=== PATIENT | female | born 1950 | race Caucasian/White ===

== ENCOUNTER → 2017-08-21 | Outpatient (CLI) | payer OTHER ==
[~2017-08-21] MED LIST: BENA40TA2 PO; CALC625T13 PO; ESTR1TAB15 PO; FLUO10CA13 PO; LEVO50TA5 PO; PROG100C16 PO
[2017-08-21 14:15] LABS: MICROSCOPIC AUTO
[2017-08-21 14:16] LABS: BASOPHILS # (AUTO) 0.02 x10^3/uL (0-0.1); BASOPHILS % (AUTO) 0 % (0-1); EOSINOPHILS # (AUTO) 0.07 x10^3/uL (0-0.4); EOSINOPHILS % (AUTO) 1 % (1-7); LYMPHOCYTES # (AUTO) 1.27 x10^3/uL (1-3.4); LYMPHOCYTES % (AUTO) 18 % (22-44); MD NO; MEAN CORPUSCULAR HEMOGLOBIN 29.4 pg (27.0-34.8); MEAN CORPUSCULAR HGB CONC 32.8 g/dL (32.4-35.8); MEAN CORPUSCULAR VOLUME 89.7 fL (80-100); MEAN PLATELET VOLUME 7.7 fL (7.4-10.4); MONOCYTES # (AUTO) 0.28 x10^3/uL (0.2-0.8); MONOCYTES % (AUTO) 4 % (2-9); NEUTROPHILS # (AUTO) 5.41 x10^3/uL (1.8-6.8); NEUTROPHILS % (AUTO) 77 % (42-75); PLATELET COUNT 303 x10^3/uL (130-400); RED BLOOD COUNT 4.47 x10^6/uL (3.82-5.3); RED CELL DISTRIBUTION WIDTH 13.7 % (9.6-15.2)
[2017-08-21 14:20] LABS: CULTURE INDICATED? NO
[2017-08-21 14:21] LABS: ALBUMIN 3.7 g/dL (3.4-5.0); ANION GAP 8 mmol/L (5-15); CALCIUM 8.9 mg/dL (8.5-10.1); CHLORIDE 107 mmol/L (98-107)
[2017-08-21 14:24] LABS: ALANINE AMINOTRANSFERASE 23 U/L (12-78); ALKALINE PHOSPHATASE 74 U/L (45-117); BILIRUBIN,TOTAL 0.5 mg/dL (0.2-1.0); CREATININE 1.08 mg/dL (0.55-1.02); TOTAL PROTEIN 7.5 g/dL (6.4-8.2)
== END ==
LOC: STAR 13:14
PROVIDERS: ATTEND Obstetrics & Gynecology Gynecology
DX: Z01.818 Encounter for other preprocedural examination (principal); D25.9 Leiomyoma of uterus, unspecified
CPT/HCPCS: 36415; 80053; 81001; 85025; 93005

== ENCOUNTER 2017-08-25 05:54 | Day surgery (SDC) | payer OTHER ==
[2017-08-21 13:37] VITALS: BP 121/91
[~2017-08-25] VITALS: Ht 152.4 cm; Wt 48.5 kg
[2017-08-25] MEDS ORDERED: LACTATED RINGERS 1,000 ML IV SCH (07:00)
[2017-08-25] MEDS ORDERED: FUROSEMIDE 20 MG/2 ML ONE (07:28)
[2017-08-25] MEDS ORDERED: INDIGO CARMINE 0.8%, 5ML ONE (07:28)
[2017-08-25] MEDS ORDERED: EPINEPHRINE 1 MG/ML, 1ML ONE (07:28)
[2017-08-25] MEDS ORDERED: LIDOCAINE 1%, 50ML ONE (07:28)
[2017-08-25] MEDS ORDERED: SCOPOLAMINE PATCH, 1.5MG PATCH.TD72 TD ONE ×2 (07:41→08:00)
[2017-08-25] MEDS ORDERED: ACETAMINOPHEN 500 MG TABLET ONE (07:41)
[2017-08-25] MEDS ORDERED: FAMOTIDINE 20 MG TABLET ONE (07:41)
[2017-08-25] MEDS ORDERED: OXYcodone IR 5MG TABLET ONE (07:41)
[2017-08-25] MEDS ORDERED: GABAPENTIN 300 MG CAPSULE ONE (07:42)
[2017-08-25] MEDS ORDERED: MIDAZOLAM 1 MG/ML, 2ML ONE (07:45)
[2017-08-25] MEDS ORDERED: FENTANYL PF 100 MCG/2ML ONE ×2 (07:45→09:20)
[2017-08-25] MEDS ORDERED: CEFAZOLIN 1,000 MG ONE (07:50)
[2017-08-25] MEDS ORDERED: PROPOFOL 10 MG/ML, 20ML ONE (07:50)
[2017-08-25] MEDS ORDERED: KETOROLAC 30 MG/1 ML ONE (07:50)
[2017-08-25] MEDS ORDERED: ROCURONIUM 10 MG/ML,10ML ONE (07:50)
[2017-08-25] MEDS ORDERED: SUCCINYLCHOLINE 20 MG/ML, 10ML ONE (07:50)
[2017-08-25] MEDS ORDERED: DEXAMETHASONE 4 MG/ML, 5ML ONE (07:50)
[2017-08-25] MEDS ORDERED: ONDANSETRON 2MG/ML, 2ML ONE (07:50)
[2017-08-25] MEDS ORDERED: OXYcodone IR 5MG TABLET PO ONE (08:00)
[2017-08-25] MEDS ORDERED: ACETAMINOPHEN 500 MG TABLET PO ONE (08:00)
[2017-08-25] MEDS ORDERED: GABAPENTIN 300 MG CAPSULE PO ONE (08:00)
[2017-08-25] MEDS ORDERED: FAMOTIDINE 20 MG TABLET PO ONE (08:00)
[2017-08-25] MEDS ORDERED: METOPROLOL 1 MG/ML, 5ML IV PRN (09:00)
[2017-08-25] MEDS ORDERED: ALBUTEROL SULFATE 2.5 MG/3 ML NPPB PRN (09:00)
[2017-08-25] MEDS ORDERED: DIAZEPAM 5 MG/ML, 2ML IVPush PRN (09:00)
[2017-08-25] MEDS ORDERED: MIDAZOLAM 1 MG/ML, 2ML IV PRN (09:00)
[2017-08-25] MEDS ORDERED: OXYcodone 5 MG/5 ML ORAL.SOL UDC PO PRN (09:00)
[2017-08-25] MEDS ORDERED: PROMETHAZINE 12.5 MG SUPP PR PRN (09:00)
[2017-08-25] MEDS ORDERED: FENTANYL PF 100 MCG/2ML IV PRN (09:00)
[2017-08-25] MEDS ORDERED: HYDROcodone/APAP 7.5-325MG/15ML UDC PO PRN (09:00)
[2017-08-25] MEDS ORDERED: PROMETHAZINE 25 MG/ML, 1ML IV PRN (09:00)
[2017-08-25] MEDS ORDERED: EPHEDRINE 50 MG/ML, 1ML IVPush PRN (09:00)
[2017-08-25] MEDS ORDERED: ACETAMINOPHEN 325 MG TABLET PO PRN (09:00)
[2017-08-25] MEDS ORDERED: morphine SULFATE 10 MG/ML, 1ML IV PRN (09:00)
[2017-08-25] MEDS ORDERED: hydrALAzine 20 MG/ML, 1ML IV PRN (09:00)
[2017-08-25] MEDS ORDERED: LABETALOL 5MG/ML, 20ML IV PRN (09:00)
[2017-08-25] MEDS ORDERED: MEPERIDINE/PF 25MG/0.5ML IVPush PRN (09:00)
[2017-08-25] MEDS ORDERED: ONDANSETRON 2MG/ML, 2ML IVPush PRN (09:00)
[2017-08-25] MEDS ORDERED: ACETAMINOPHEN 650 MG/20.3 ML UDC ONE (09:19)
[2017-08-25] MEDS ORDERED: OXYcodone 5 MG/5 ML ORAL.SOL UDC ONE (09:20)
[2017-08-25] MEDS ORDERED: MEPERIDINE/PF 25MG/0.5ML ONE (09:34)
== END 2017-08-25 14:10 | disposition home or self-care (01) ==
LOC: OUT 05:54
PROVIDERS: ATTEND Obstetrics & Gynecology Gynecology
DX: D25.2 Subserosal leiomyoma of uterus (principal); D25.1 Intramural leiomyoma of uterus; N80.0 Endometriosis of uterus; D28.2 Benign neoplasm of uterine tubes and ligaments; N83.8 Other noninflammatory disorders of ovary, fallopian tube and broad ligament; I10 Essential (primary) hypertension; E03.9 Hypothyroidism, unspecified; Z91.010 Allergy to peanuts; Z79.899 Other long term (current) drug therapy; Z90.49 Acquired absence of other specified parts of digestive tract
CPT/HCPCS: 36415; 58552; 85014; 88307; 88311; J0171; J0330; J0690; J1100; J1885; J2175; J2250; J2405; J2704; J3490; J7120; J3010; J1940